=== PATIENT | male | born 1965 | race African-American/Black ===

== ENCOUNTER 2020-04-02 12:32 | Emergency (ER) | payer OTHER ==
[~2020-04-02] VITALS: Ht 175.3 cm; Wt 60.0 kg
[2020-04-02] MEDS ORDERED: FAMOTIDINE 20MG TABLET PO ONE (13:15)
[2020-04-02] MEDS ORDERED: DIPHENHYDRAMINE 25MG CAPSULE PO ONE (13:15)
[2020-04-02 13:39] VITALS: BP 132/78
== END 2020-04-02 13:35 | disposition home or self-care (01) ==
LOC: ER 12:32
DX: L20.9 Atopic dermatitis, unspecified (principal)
CPT/HCPCS: 99283; Q0163